=== PATIENT | female | born 1965 | race Caucasian/White ===

== ENCOUNTER 2024-01-03 06:34 | Emergency (ER) | payer BC, SELFPAY ==
[2024-01-03 06:35] VITALS: BP 155/98
--- NOTE | 2024-01-03 06:54 | ED.GENMED ---
History of Present Illness
<Bruno Villegas MD, Resident - Last Filed: 01/03/24 08:13>
General
Chief Complaint: Urinary Symptoms
Source: patient
Time Seen by Provider: 01/03/24 06:41
History of Present Illness
History of Present Illness:
Antonietta Mclain, age 58, is here for evaluation of urinary hesitancy. She woke up in the middle of the night with an urge to urinate, however was unable to - said urine dribbled out a bit. She can otherwise urinate 2-3x a night without any
problems. She has no associated pain, distention, discomfort or other symptoms. No fevers, chills, night sweats, palpitations or dizziness. She was able to provide a urine sample in the ED on arrival, but says that it does not feel completely
normal. No burning, overt blood or change in color noted. She has had urinary tract infections in the past, and was last treated 5 years ago.
Past History
<Bruno Villegas MD, Resident - Last Filed: 01/03/24 08:13>
Past History
ED Past Medical History: Other (COVID-19)
ED Past Surgical History: None
Social History
Tobacco: Non-smoker
Alcohol: Occasional
Drug: None
Personal:
Living: with family
Review of Systems
<Bruno Villegas MD, Resident - Last Filed: 01/03/24 08:13>
Review of Systems
All Other Systems: Not applicable
Constitutional: Reports no symptoms
EENT: Reports no symptoms
Respiratory: Reports no symptoms
Cardiac: Reports no symptoms
ABD/GI: Reports no symptoms
: Reports difficulty voiding; Denies dysuria, frequency, flank pain, incontinence, urgency, bleeding, dark urine or discharge
Musculoskeletal: Reports no symptoms
Skin: Reports no symptoms
Neurological: Reports no symptoms
Endocrine: Reports no symptoms
Hematologic/Lymphatic: Reports no symptoms
Psychiatric: Reports no symptoms
Phy Exam
<Bruno Villegas MD, Resident - Last Filed: 01/03/24 08:13>
General Physical Exam
General Presentation: well appearing and no apparent distress
General Skin: warm and dry
General Habitus: normal
General Mental: alert
General Hydration: appears well hydrated
ENT Exam
ENT Exam: EOMI, pharynx normal, neck supple and normocephalic
Eye Exam
Eye Exam: PERRL, cornea clear and conjunctiva normal
Cardiovascular Exam
Cardiovascular Exam: regular rate/rhythm, no edema, no murmur and normal peripheral pulses
Pulmonary Exam
Pulmonary Exam: lungs clear, no respiratory distress, no rales, no crackles, no rhonchi, no stridor, no wheezing and no cough
Gastrointestinal Exam
Gastrointestinal Exam: normal bowel sounds, non tender, soft, no organomegaly, no pulsatile mass and non distended
Neurological Exam
Neurological Exam: alert, oriented x3, no motor deficits and speech normal
Musculoskeletal Exam
Musculoskeletal Exam: full ROM and no edema
Skin Exam
Skin Exam: normal color, warm/dry, no rash and no petechia
Psychiatric Exam
Psychiatric Exam: normal mood/affect
Course
<Bruno Villegas MD, Resident - Last Filed: 01/03/24 08:13>
Orders/Labs/Results
Orders:
Orders
01/03/24 06:42
Bladder Scan- Treatment ONCE
01/03/24 06:47
Urinalysis Reflex To Culture Urgent
Date Specimen was Collected: 01/03/24
Time Specimen was Collected: 06:44
Urine Microscopic Reflex Cult Urgent
Urine Culture Urgent
ELIEL Source: U
Specimen Description:
Date Specimen was Collected: 01/03/24
Time Specimen was Collected: 06:44
Abnormal Lab Results
01/03/24
06:47
Leukocyte Esterase Rfl 1+ A
(Negative)
Vital Signs
Initial and Last Documented VS:
Initial Vital Signs
Temp Pulse Resp BP Pulse Ox
97.8 F 80 18 155/98 99
01/03/24 06:35 01/03/24 06:35 01/03/24 06:35 01/03/24 06:35 01/03/24 06:35
Last Documented Vital Signs
Temp Pulse Resp BP Pulse Ox
97.8 F 80 18 155/98 99
01/03/24 06:35 01/03/24 06:35 01/03/24 06:35 01/03/24 06:35 01/03/24 06:35
<Yury Wan MD - Last Filed: 01/03/24 07:03>
Orders/Labs/Results
Orders:
Orders
01/03/24 06:42
Bladder Scan- Treatment ONCE
01/03/24 06:47
Urinalysis Reflex To Culture Urgent
Date Specimen was Collected: 01/03/24
Time Specimen was Collected: 06:44
Urine Microscopic Reflex Cult Urgent
Urine Culture Urgent
ELIEL Source: U
Specimen Description:
Date Specimen was Collected: 01/03/24
Time Specimen was Collected: 06:44
Abnormal Lab Results
01/03/24
06:47
Leukocyte Esterase Rfl 1+ A
(Negative)
Vital Signs
Initial and Last Documented VS:
Initial Vital Signs
Temp Pulse Resp BP Pulse Ox
97.8 F 80 18 155/98 99
01/03/24 06:35 01/03/24 06:35 01/03/24 06:35 01/03/24 06:35 01/03/24 06:35
Last Documented Vital Signs
Temp Pulse Resp BP Pulse Ox
97.8 F 80 18 155/98 99
01/03/24 06:35 01/03/24 06:35 01/03/24 06:35 01/03/24 06:35 01/03/24 06:35
<Bruno Villegas MD, Resident - Last Filed: 01/03/24 08:13>
*Critical Care Note
Total Time (30-74mins, 75-104mins- exclusive of procedures): Not Applicable
ED Attending Note
<Bruno Villegas MD, Resident - Last Filed: 01/03/24 08:13>
-
Portions of this chart may have been created with voice recognition software.� Occasional wrong word or��sound alike� substitutions may have occurred due to the inherent limitations of voice recognition software.
<Yury Wan MD - Last Filed: 01/03/24 07:03>
ED Attending Note
Patient seen and examined by attending physician: Yes
I performed a history and physical exam of patient and discussed management with resident, I reviewed resident's note and agree with documented findings and plan of care.: Yes
ED Attending Note:
I have seen and evaluated the patient with a [id number] encounter. I have spoken to the resident and involved in the medical history, the physical exam, medical decision making.
Evaluation and management service: agree unless noted differently below.
Results interpretation: agree unless noted differently below.
Focused HPI: 58-year-old female with no reported chronic medical issues presents to the ER for evaluation of urinary issues. Patient says that she woke up this morning with the urge to urinate but was unable to pass any urine. Came to the ER to be
evaluated. Since arrival in the ER she was able to urinate now feels that she empties her bladder. She does note that while she was in the bathroom this morning trying to urinate she did pass a large bowel movement. She has not had any dysuria,
hematuria, change in frequency recently�urinated last night without any issue. She denies similar symptoms in the past. She denies any back pain, flank pain, abdominal pain. She denies any weakness in the legs or numbness in the groin.
Physical exam: Awake alert no distress. Hypertensive otherwise normal vitals. Abdomen soft nontender to deep palpation.
Medical Decision Makin-year-old female presents for evaluation after having difficulty passing urine this morning despite the urge to urinate. She did have a bowel movement while trying to urinate and then when she arrived to the emergency
room was able to empty her bladder. Has not had any dysuria, hematuria, change in frequency, fevers or chills, abdominal or flank pain. Suspect that this may have been constipation causing difficulty emptying bladder and that once she passed her
stools she was able to the bladder here. Differential would also include early UTI. Bladder scan here shows no postvoid residual. Will check urinalysis.
Discharge Plan
Departure
Patient Disposition: Home (Routine Discharge)
Date of Disposition: 01/03/24
Time of Disposition: 08:04
Patient with high blood pressure during this ER visit?: Yes
Discharge Problem:
Urinary retention, Constipation
Instructions: Urinary retention
Activity Restrictions/Additional Instructions:
Thank you for visiting the Emergency Department at [facility].
1. Please schedule a follow up appointment as directed. Call first thing tomorrow morning to make an appointment.
2. If indicated, please take your medications as instructed and indicated on discharge paperwork.
3. If any of your symptoms do not improve, or persist, or become more severe within 6-12 hours, please return to the emergency department for further care.
4. Please return to the emergency department if you develop a headache, neck pain/stiffness, fever greater than 100.4F, chest pain, shortness of breath, persistent nausea, vomiting, slurred speech, difficulty walking, numbness/tingling, weakness,
signs of infection or any other symptoms that are worrisome to you.
Please call [phone] if you have any questions.
Interventions
Interventions:
*Risk Screen - Suicide Last Done: 01/03/24 06:35
*General Assessment Last Done: 01/03/24 06:35
*Neglect/Abuse Screening Last Done: 01/03/24 06:35
Discharge Date and Time
Print Language: BELARUSIAN
[2024-01-03 07:21] LABS: Urine Albumin Negative (Neg - Trace); Urine Bilirubin Negative (Negative); Urine Character Clear (Clear); Urine Color Yellow; Urine Glucose Negative (Negative); Urine Ketone Negative (Negative); Urine Leukocyte 1+ (Negative); Urine Nitrite Negative (Negative); Urine Occult Blood Negative (Negative); Urine Urobilinogen Negative (Neg - 1+)
[2024-01-03 08:00] VITALS: BP 142/89
[2024-01-03 08:01] LABS: Urine Mucus Moderate
[2024-01-03 08:02] LABS: Urine Red Blood Cell 0-2 /HPF (0-2)
== END 2024-01-03 08:31 | disposition home or self-care (01) ==
LOC: EMR 06:34
PROVIDERS: EMERGENCY PHYSICIAN Emergency Medicine; FAMILY PHYSICIAN Family Medicine
DX: R33.9 Retention of urine, unspecified (principal); K59.00 Constipation, unspecified; Z86.16 Personal history of COVID-19; Z87.440 Personal history of urinary (tract) infections
CPT/HCPCS: 99282; 81003; 81015; 87086

== ENCOUNTER → 2024-05-15 07:31 | Outpatient (REF) | payer BC, SELFPAY | LOC: HWWDC 07:31 | PROVIDERS: ATTENDING PHYSICIAN Obstetrics & Gynecology Gynecology; FAMILY PHYSICIAN Family Medicine | DX: Z12.31 Encounter for screening mammogram for malignant neoplasm of breast (principal) | CPT/HCPCS: 77063; 77067 ==